=== PATIENT | female | born 1960 | race American Indian/Alaskan Native ===

== ENCOUNTER 2020-12-25 13:54 | Emergency (ER) | payer SELFPAY ==
[2020-12-25 14:19] VITALS: BP 115/87
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
== END 2020-12-25 15:05 | disposition home or self-care (01) ==
LOC: ED 13:54
DX: M79.18 Myalgia, other site (principal); Z88.5 Allergy status to narcotic agent; Z88.0 Allergy status to penicillin; V87.7XXA Person injured in collision between other specified motor vehicles (traffic), initial encounter; Y93.89 Activity, other specified; Y92.488 Other paved roadways as the place of occurrence of the external cause; Y99.8 Other external cause status
CPT/HCPCS: 99282

== ENCOUNTER 2021-12-19 14:15 | Emergency (ER) | payer OTHER | END 2021-12-20 03:30 | disposition left against medical advice (07) | LOC: ED 14:15 | DX: M79.10 Myalgia, unspecified site (principal); Z53.21 Procedure and treatment not carried out due to patient leaving prior to being seen by health care provider ==